=== PATIENT | female | born 1940 | race Caucasian/White ===

== ENCOUNTER → 2016-05-27 | Outpatient (CLI) | payer MEDICARE ==
--- NOTE | 2016-05-29 09:34 | MM ---
Reason for exam: screening (asymptomatic). Last mammogram was performed 1 year ago. History: Patient is postmenopausal. Physical Findings: A clinical breast exam by your physician is recommended on an annual basis and results should be correlated with mammographic findings. MG 3D Screening Mammo W/Cad Bilateral CC and MLO view(s) were taken. Prior study comparison: May 24, 2015, bilateral MG 3d screening mammo w/cad. November 09, 2014, left breast MG diagnostic mammo LT w CAD. There are scattered fibroglandular densities. No significant changes when compared with prior studies. ASSESSMENT: Benign, BI-RAD 2 RECOMMENDATION: Routine screening mammogram of both breasts in 1 year.
== END | disposition home or self-care (01) ==
LOC: RADMAMWWP 09:35
PROVIDERS: ATTEND Internal Medicine
DX: Z12.31 Encounter for screening mammogram for malignant neoplasm of breast (principal)
CPT/HCPCS: 77063; G0202

== ENCOUNTER → 2017-05-28 | Outpatient (CLI) | payer MEDICARE ==
--- NOTE | 2017-05-30 07:30 | MM ---
Reason for exam: screening (asymptomatic). Last mammogram was performed 1 year ago. History: Patient is postmenopausal. Physical Findings: A clinical breast exam by your physician is recommended on an annual basis and results should be correlated with mammographic findings. MG 3D Screening Mammo W/Cad Bilateral CC and MLO view(s) were taken. Prior study comparison: May 27, 2016, bilateral MG 3d screening mammo w/cad. May 24, 2015, bilateral MG 3d screening mammo w/cad. There are scattered fibroglandular densities. Stable benign calcifications. There is no discrete abnormality. No significant changes when compared with prior studies. ASSESSMENT: Benign, BI-RAD 2 RECOMMENDATION: Routine screening mammogram of both breasts in 1 year.
== END | disposition home or self-care (01) ==
LOC: RADMAMWWP 08:25
PROVIDERS: ATTEND Internal Medicine
DX: Z12.31 Encounter for screening mammogram for malignant neoplasm of breast (principal)
CPT/HCPCS: 77063; 77067

== ENCOUNTER → 2018-09-28 | Outpatient (CLI) | payer MEDICARE ==
--- NOTE | 2018-09-30 09:20 | MM ---
Reason for exam: screening (asymptomatic). Last mammogram was performed 1 year and 4 months ago. History: Patient is postmenopausal. Physical Findings: A clinical breast exam by your physician is recommended on an annual basis and results should be correlated with mammographic findings. MG 3D Screening Mammo W/Cad Bilateral CC and MLO view(s) were taken. Prior study comparison: May 28, 2017, bilateral MG 3d screening mammo w/cad. May 27, 2016, bilateral MG 3d screening mammo w/cad. There are scattered fibroglandular densities. Benign appearing bilateral calcifications. No significant changes when compared with prior studies. ASSESSMENT: Benign, BI-RAD 2 RECOMMENDATION: Routine screening mammogram of both breasts in 1 year.
== END | disposition home or self-care (01) ==
LOC: RADMAMWWP 10:18
PROVIDERS: ATTEND Internal Medicine
DX: Z12.31 Encounter for screening mammogram for malignant neoplasm of breast (principal)
CPT/HCPCS: 77063; 77067

== ENCOUNTER → 2021-06-29 | Outpatient (CLI) | payer MEDICARE ==
--- NOTE | 2021-07-05 15:15 | PE ---
Comparison PET/CT HISTORY: Anal carcinoma, subsequent Patient received 11.11 mCi F-18 FDG intravenously and delayed scanning was performed from skull base to the mid thighs. Localization and attenuation correction CT scan was performed. Correlation to CT scan 04/02/2021 Chest and neck: There is no suspicious uptake. No cervical or supraclavicular adenopathy, no mediasti nal, axillary, or hilar adenopathy. There is no pleural or pericardial effusion. No evident lung mass . There are coronary artery calcifications present. Centrilobular emphysema is present within the ricardo gs. ABDOMEN: The region of the anus shows associated hypermetabolic uptake, SUV is 14. Left inguinal arvind opathy is again noted and shows associated uptake, SUV is 5.9. Patient is post cholecystectomy. No evident liver mass. Left renal cystic lesions are not simple cyst ic, possible proteinaceous cysts but indeterminate. No evident liver mass. No adrenal mass or retrope ritoneal adenopathy. Uterus and adnexal structures within normal limits. Diverticular changes associa burt with the colon. Aorta shows atheromatous change. Osseous structures show no suspicious uptake. Degenerative changes are present within the lumbar spin e, there is facet arthropathy and degenerative disc change. No suspicious uptake. IMPRESSION: Findings consistent with patient's history of anal carcinoma left inguinal adenopathy. Cy stic lesions associated with the left kidney.
== END | disposition home or self-care (01) ==
LOC: RADPETMAIN 14:28
PROVIDERS: ATTEND Radiology Radiation Oncology
DX: C21.1 Malignant neoplasm of anal canal (principal)
CPT/HCPCS: 78815; A9552

== ENCOUNTER → 2021-12-07 | Outpatient (CLI) | payer MEDICARE | END | disposition home or self-care (01) | LOC: RADPETMAIN 08:31 | PROVIDERS: ATTEND Radiology Radiation Oncology | DX: C21.1 Malignant neoplasm of anal canal (principal); C77.4 Secondary and unspecified malignant neoplasm of inguinal and lower limb lymph nodes; Z79.899 Other long term (current) drug therapy | CPT/HCPCS: 78815; A9552 ==

== ENCOUNTER 2022-05-21 08:26 | Day surgery (SDC) | payer MEDICARE ==
[2022-05-16 18:05] VITALS: BMI 29.6
[~2022-05-21 08:26] MED LIST: ALPRAZolam 0.25 MG TAB PO PRN; ALPRAZolam 0.5 MG TAB PO PRN; ASPIRIN 325 MG TAB PO STA; ATORVASTATIN 80 MG TAB PO STA; HEPARIN SODIUM,PORCINE 10,000 UNIT in SODIUM CHLORIDE 0.9% 1,000 ML IRRIGATION PRN; HEPARIN SODIUM,PORCINE 2,500 UNIT in SODIUM CHLORIDE 0.9% 250 ML IRRIGATION PRN; NITROGLYCERIN SL TABS 0.4 MG TAB SUBLINGUAL PRN; SODIUM CHLORIDE 0.9% 1,000 ML in EMPTY BAG 1 BAG IV SCH
[2022-05-21 09:02] LABS: Basophils % (A) 1 %; Eosinophils # (A) 0.2 k/uL (0-0.7); Eosinophils % (A) 4 %; HCT 32.6 % (34.0-46.0); HGB 11.2 gm/dL (11.4-16.0); Lymphocytes # (A) 0.4 k/uL (1.0-4.8); Lymphocytes % (A) 7 %; MCH 34.9 pg (25.0-35.0); MCHC 34.4 g/dL (31.0-37.0); MCV 101.6 fL (80.0-100.0); Macrocytosis Slight; Mean Platelet Volume 8.5; Monocytes # (A) 0.4 k/uL (0-1.0); Monocytes % (A) 6 %; Neutrophils % (A) 81 %; Platelet Count 198 k/uL (150-450); RDW 13.9 % (11.5-15.5); WBC 6.2 k/uL (3.8-10.6)
[2022-05-21 09:03] VITALS: RESP 18; TEMP 98
[2022-05-21 09:03] LABS: Glucose,Whole Blood 104 mg/dL (70-110)
[2022-05-21 09:13] LABS: Calcium 8.8 mg/dL (8.4-10.2); Potassium 3.7 mmol/L (3.5-5.1)
[2022-05-21] MEDS ORDERED: VERAPAMIL 2.5 MG/ML 2 ML AMP ONE (09:43)
[2022-05-21] MEDS ORDERED: HEPARIN SODIUM 1,000 UN/ML (10ML VL) ONE (09:43)
[2022-05-21] MEDS ORDERED: fentaNYL (PF) 50 MCG/ML 2 ML AMP ONE (10:15)
[2022-05-21] MEDS ORDERED: MIDAZOLAM 2 MG/2 ML VIAL IVP ONE (10:15)
[2022-05-21] MEDS ORDERED: fentaNYL (PF) 50 MCG/1 ML VIAL IVP ONE ×2 (10:15)
[2022-05-21] MEDS ORDERED: LIDOCAINE 1% INJ 10MG/ML (5 ML VIAL-PF) SQ ONE (10:17)
[2022-05-21] MEDS ORDERED: VERAPAMIL SYRINGE (5 MG/10 ML) INTRAARTER ONE (10:21)
[2022-05-21] MEDS ORDERED: HEPARIN SODIUM 1,000 UN/ML (10ML VL) IV ONE (10:24)
[2022-05-21] MEDS ORDERED: IOPAMIDOL-370 125ML BTL INJ ONE (10:30)
[2022-05-21] MEDS ORDERED: RX INFO: IV CONTRAST WAS GIVEN 1 EACH MISC MISCELLANE PRN (10:55)
[2022-05-21] MEDS ORDERED: SODIUM CHLORIDE 0.9% 1,000 ML IV SCH (11:00)
--- NOTE | 2022-05-21 12:38 | CC ---
CARDIAC CATHETERIZATION REPORT INDICATIONS: Congestive heart failure with cardiomyopathy with ischemia in LAD distribution. PROCEDURE NOTE: After obtaining informed consent, left heart catheterization and coronary angiogram were performed via the right radial artery using size 3.5 right and left Marichuy catheter. Hemodynamics were obtained using the right Marichuy catheter. The patient tolerated the procedure well without any obvious immediate complications. She received moderate conscious sedation. Total sedation time was 12 minutes. Right radial artery access was obtained using a modified Seldinger technique. A 6- [place] sheath was placed. Catheters and wires were floated into the ascending aorta under fluoroscopic guidance, where they were exchanged. The patient received 5 mg of verapamil and 4000 units of heparin per protocol and a TR band was placed for hemostasis at the end. FINDINGS: 1. Hemodynamics: Left ventricular end-diastolic pressure is 14 mm. There is no significant gradient across the aortic valve. 2. Left ventriculogram: Left ventriculogram was not performed. 3. Angiographic data: a.Right coronary artery: Right coronary artery is a large dominant vessel and is free of stenosis. That revealed mild nonobstructive CAD. b.Left main coronary artery: Left main coronary artery is a normal-sized vessel and is free of stenosis. It divides into left anterior descending coronary artery and circumflex coronary artery. c.Circumflex coronary artery which is a codominant system is free of significant stenosis. d.LAD shows a vypz-jq-rkjucvck atherosclerotic plaque in its midportion. CONCLUSIONS: Swxm-[id number] nonobstructive disease involving LAD. PLAN: The patient's management is going to be in the form of risk factor modification, medical therapy, and her stress test is a false-positive stress test. MMODL / IJN: [id number] /
[2022-05-21 14:16] VITALS: BP 155/73; PULSE 72
== END 2022-05-21 14:45 | disposition home or self-care (01) ==
LOC: CATHCVL 08:26
PROVIDERS: ATTEND Internal Medicine Cardiovascular Disease
DX: I25.10 Atherosclerotic heart disease of native coronary artery without angina pectoris (principal); I11.0 Hypertensive heart disease with heart failure; I50.22 Chronic systolic (congestive) heart failure; I42.9 Cardiomyopathy, unspecified; I99.8 Other disorder of circulatory system; E78.5 Hyperlipidemia, unspecified; Z85.048 Personal history of other malignant neoplasm of rectum, rectosigmoid junction, and anus; Z92.21 Personal history of antineoplastic chemotherapy; Z92.3 Personal history of irradiation; Z82.49 Family history of ischemic heart disease and other diseases of the circulatory system; Z79.82 Long term (current) use of aspirin; Z79.1 Long term (current) use of non-steroidal anti-inflammatories (NSAID); Z79.83 Long term (current) use of bisphosphonates; Z79.899 Other long term (current) drug therapy; Z79.01 Long term (current) use of anticoagulants; Z79.02 Long term (current) use of antithrombotics/antiplatelets; Z88.2 Allergy status to sulfonamides
CPT/HCPCS: 93458; 80048; 85025; C1769; C1894; J2250; J2001; J1644; Q9967; J3010

== ENCOUNTER 2022-05-22 14:14 | Inpatient (IN) | payer MEDICARE ==
--- NOTE | 2022-05-22 15:45 | ED ---
SOB HPI - General Chief Complaint: Shortness of Breath Stated Complaint: chest pain Time Seen by Provider: 05/22/22 14:38 Source: patient, EMS Mode of arrival: EMS Limitations: no limitations - History of Present Illness Initial Comments: 81-year-old female presents to the emergency department as a transfer from [facility]. She has a history of congestive heart failure. She received a heart catheterization yesterday by Dr. Moreno. Procedure was performed on an outpatient basis. Catheterization showed mild to moderate nonobstructive disease involving the LAD. No stents were placed. Patient was discharged home. She reports that last night she became short of breath and it persisted into the morning. She does take Lasix. States that she did take her dose today. She denies any chest pain. No nausea or vomiting. She denies fevers, chills or cough. No lower extremity swelling. At [facility] they found her to have a BNP of 15,000. Chest x-ray demonstrates pulmonary vascular congestion and pleural effusions. She was given 40 mg of Lasix. She has had 1500 mL of urine output. They did speak to Dr. Moreno. Transferred here for further care. No other alleviating, precipitating or modifying factors - Related Data Home Medications Medication Instructions Recorded Confirmed Aspirin 325 mg PO DAILY 05/16/22 05/22/22 Calcium Carbonate/Vitamin D3 1 cap PO W/LUNCH 05/16/22 05/22/22 [Calcium 600 mg-D3 10 Mcg (400 Iu)] Esomeprazole Magnesium [NexIUM 20 mg PO HS 05/16/22 05/22/22 24Hr] Ferrous Sulfate [Iron (65 MG 325 mg PO BID 05/16/22 05/22/22 Elemental)] Glucosamine/Chondr Hsu A Sod [Osteo 1 tab PO DAILY 05/16/22 05/22/22 Bi-Flex Caplet] Losartan Potassium 50 mg PO DAILY 05/16/22 05/22/22 Methenamine/Sodium Salicylate [Azo 1 tab PO W/LUNCH 05/16/22 05/22/22 Urinary Tract Defense Tab] Metoprolol Tartrate [Lopressor] 12.5 mg PO BID 05/16/22 05/22/22 Potassium Gluconate [Potassium 99 mg PO DAILY 05/16/22 05/22/22 Gluconate ER] Rosuvastatin Calcium 40 mg PO HS 05/16/22 05/22/22 Previous Rx's Medication Instructions Recorded Furosemide [Lasix] 40 mg PO DAILY #0 05/24/22 Allergies Allergy/AdvReac Type Severity Reaction Status Date / Time Sulfa (Sulfonamide AdvReac Rash/Hives Verified 05/22/22 16:38 Antibiotics) Review of Systems ROS Statement: Those systems with pertinent positive or pertinent negative responses have been documented in the HPI. ROS Other: All systems not noted in ROS Statement are negative. Past Medical History Past Medical History: Heart Failure, Diabetes Mellitus, GERD/Reflux, Hyperlipidemia, Hypertension, Myocardial Infarction (CT), Osteoarthritis (OA) Additional Past Medical History / Comment(s): DIET CONTROL DM. ANAL CANCER-25 ROUNDS OF CHEMO AND RADIATION. ANEMIA Last Myocardial Infarction Date:: UNK-PER DAUGHTER History of Any Multi-Drug Resistant Organisms: None Reported Past Surgical History: Cholecystectomy Additional Past Surgical History / Comment(s): D&C. COLONOSCOPY. BILAT CATARACTS REMOVED WITH LENS IMPLANTS Past Anesthesia/Blood Transfusion Reactions: No Reported Reaction Smoking Status: Never smoker - Past Family History Mother Family Medical History: No Reported History General Exam Limitations: no limitations General appearance: alert, in no apparent distress Head exam: Present: atraumatic, normocephalic, normal inspection Eye exam: Present: normal appearance, PERRL, EOMI. Absent: scleral icterus, conjunctival injection, periorbital swelling ENT exam: Present: normal exam, mucous membranes moist Neck exam: Present: normal inspection. Absent: tenderness, meningismus, lymphadenopathy Respiratory exam: Absent: respiratory distress, wheezes, rales, rhonchi, st ridor, accessory muscle use Cardiovascular Exam: Present: regular rate, normal rhythm, normal heart sounds. Absent: systolic murmur, diastolic murmur, rubs, gallop, clicks GI/Abdominal exam: Present: soft, normal bowel sounds. Absent: distended, te nderness, guarding, rebound, rigid Extremities exam: Present: full ROM, normal capillary refill, pedal edema. Absent: tenderness, joint swelling, calf tenderness Back exam: Present: normal inspection Neurological exam: Present: alert, oriented X3, CN II-XII intact Psychiatric exam: Present: normal affect, normal mood Skin exam: Present: warm, dry, intact, normal color. Absent: rash Course Vital Signs 05/22/22 05/22/22 05/22/22 14:16 14:30 15:00 Temperature 97.9 F Pulse Rate 83 79 75 Respiratory 20 18 16 Rate Blood Pressure 156/83 156/83 154/86 O2 Sat by Pulse 98 Oximetry 05/22/22 05/22/22 05/22/22 15:30 16:00 16:17 Temperature Pulse Rate 80 83 Respiratory 16 22 18 Rate Blood Pressure 148/60 150/83 O2 Sat by Pulse 100 99 93 L Oximetry 05/22/22 16:30 Temperature Pulse Rate 84 Respiratory 16 Rate Blood Pressure 143/75 O2 Sat by Pulse 96 Oximetry Medical Decision Making - Medical Decision Making Was pt. sent in by a medical professional or institution? [facility] Did you speak to anyone other than the patient for history? daughter Did you review nursing and triage notes? yes and I agree Were old charts reviewed? yes. transfer paperwork from outside hospital Differential Diagnosis? MDM Differential Dyspnea: Coronary syndrome, arrhythmia, tamponade, asthma, COPD, pulmonary embolism, pneumonia, pneumothorax, pulmonary effusion, anaphylaxis, diabetic ketoacidosis, flailed chest, pulmonary contusion, diaphragmatic rupture, anemia, neuromuscular this is not meant to be an all-inclusive list. EKG interpreted by me (3pts min.)? yes X-rays interpreted by me (1pt min.)? no CT interpreted by me (1pt min.)? no U/S interpreted by me (1pt. min.)? no What testing was considered but not performed? (CT, X-rays, U/S, labs)? Why? none What meds were considered but not given? Why? none Did you discuss the management of the patient with other professionals? admitting physician Did you reconcile home meds? yes Was smoking cessation discussed for >3mins.? no Was critical care preformed (if so, how long)? no Were there social determinants of health that impacted care today? How? (Homelessness, low income, unemployed, alcoholism, drug addiction, transportation, low edu. Level, literacy, decrease access to med. care, snf, rehab)? none Was there de-escalation of care discussed even if they declined? (Discuss DNR or withdrawal of care, Hospice)? no What co-morbidities impacted this encounter? (DM, HTN, Smoking, COPD, CAD, Can cer, CVA, Hep., AIDS, mental health diagnosis, sleep apnea, morbid obesity)? htn, hld, chf, DM Was patient admitted / discharged? Upon arrival the patient was placed into room 22. Thorough history and physical exam was performed. I did review the patient's outside records. Chest x-ray does show volume overload. Recommend recommended admission for cardiology to see her. Patient was agreeable to this. I spoke with Dr. castañeda for adm ission of the patient was taken to the floor. I did order scheduled Lasix and cardiology consultation Undiagnosed new problem with uncertain prognosis? yes Drug Therapy requiring intensive monitoring for toxicity (Heparin, Nitro, Insulin, Cardizem)? no Were any procedures done? no Diagnosis/symptom? acute chf exacerbation Acute, or Chronic, or Acute on Chronic? acute on chronic Uncomplicated (without systemic symptoms) or Complicated (systemic symptoms)? complicated Side effects of treatment? livia Exacerbation, Progression, or Severe Exacerbation] exacerbation Poses a threat to life or bodily function? yes - Lab Data Result diagrams: 05/23/22 09:04 05/24/22 06:55 Lab Results 05/22/22 05/22/22 05/22/22 Range/Units 17:18 18:59 19:51 WBC (3.8-10.6) k/uL RBC (3.80-5.40) m/uL Hgb (11.4-16.0) gm/dL Hct (34.0-46.0) % MCV (80.0-100.0) fL MCH (25.0-35.0) pg MCHC (31.0-37.0) g/dL RDW (11.5-15.5) % Plt Count (150-450) k/uL MPV Neutrophils % % Lymphocytes % % Monocytes % % Eosinophils % % Basophils % % Neutrophils # (1.3-7.7) k/uL Lymphocytes # (1.0-4.8) k/uL Monocytes # (0-1.0) k/uL Eosinophils # (0-0.7) k/uL Basophils # (0-0.2) k/uL Macrocytosis D-Dimer (<0.60) mg/L FEU Sodium (137-145) mmol/L Potassium (3.5-5.1) mmol/L Chloride (98-107) mmol/L Carbon Dioxide (22-30) mmol/L Anion Gap mmol/L BUN (7-17) mg/dL Creatinine (0.52-1.04) mg/dL Est GFR (CKD-EPI)AfAm (>60 ml/min/1.73 sqM) Est GFR (CKD-EPI)NonAf (>60 ml/min/1.73 sqM) Glucose (74-99) mg/dL POC Glucose (mg/dL) 92 177 H (70-110) mg/dL POC Glu Alliance Director ID Alicia Galeano Kylee Calcium (8.4-10.2) mg/dL Troponin I 0.105 H* (0.000-0.034) ng/mL NT-Pro-B Natriuret Pep pg/mL 05/22/22 05/23/22 05/23/22 Range/Units 22:01 06:04 09:04 WBC (3.8-10.6) k/uL RBC (3.80-5.40) m/uL Hgb (11.4-16.0) gm/dL Hct (34.0-46.0) % MCV (80.0-100.0) fL MCH (25.0-35.0) pg MCHC (31.0-37.0) g/dL RDW (11.5-15.5) % Plt Count (150-450) k/uL MPV Neutrophils % % Lymphocytes % % Monocytes % % Eosinophils % % Basophils % % Neutrophils # (1.3-7.7) k/uL Lymphocytes # (1.0-4.8) k/uL Monocytes # (0-1.0) k/uL Eosinophils # (0-0.7) k/uL Basophils # (0-0.2) k/uL Macrocytosis D-Dimer (<0.60) mg/L FEU Sodium 141 (137-145) mmol/L Potassium 3.6 (3.5-5.1) mmol/L Chloride 104 (98-107) mmol/L Carbon Dioxide 32 H (22-30) mmol/L Anion Gap 5 mmol/L BUN 26 H (7-17) mg/dL Creatinine 1.23 H (0.52-1.04) mg/dL Est GFR (CKD-EPI)AfAm 48 (>60 ml/min/1.73 sqM) Est GFR (CKD-EPI)NonAf 42 (>60 ml/min/1.73 sqM) Glucose 159 H (74-99) mg/dL POC Glucose (mg/dL) 105 (70-110) mg/dL POC Glu Alliance Director Yadira Diehl Calcium 8.5 (8.4-10.2) mg/dL Troponin I 0.117 H* (0.000-0.034) ng/mL NT-Pro-B Natriuret Pep pg/mL 05/23/22 05/23/22 05/23/22 Range/Units 09:04 09:04 09:04 WBC 4.7 (3.8-10.6) k/uL RBC 2.91 L (3.80-5.40) m/uL Hgb 9.9 L (11.4-16.0) gm/dL Hct 29.6 L (34.0-46.0) % MCV 101.6 H (80.0-100.0) fL MCH 33.9 (25.0-35.0) pg MCHC 33.4 (31.0-37.0) g/dL RDW 14.1 (11.5-15.5) % Plt Count 180 (150-450) k/uL MPV 7.6 Neutrophils % 79 % Lymphocytes % 7 % Monocytes % 7 % Eosinophils % 5 % Basophils % 0 % Neutrophils # 3.7 (1.3-7.7) k/uL Lymphocytes # 0.3 L (1.0-4.8) k/uL Monocytes # 0.3 (0-1.0) k/uL Eosinophils # 0.2 (0-0.7) k/uL Basophils # 0.0 (0-0.2) k/uL Macrocytosis Slight D-Dimer 1.56 H (<0.60) mg/L FEU Sodium (137-145) mmol/L Potassium (3.5-5.1) mmol/L Chloride (98-107) mmol/L Carbon Dioxide (22-30) mmol/L Anion Gap mmol/L BUN (7-17) mg/dL Creatinine (0.52-1.04) mg/dL Est GFR (CKD-EPI)AfAm (>60 ml/min/1.73 sqM) Est GFR (CKD-EPI)NonAf (>60 ml/min/1.73 sqM) Glucose (74-99) mg/dL POC Glucose (mg/dL) (70-110) mg/dL POC Glu Alliance Director ID Calcium (8.4-10.2) mg/dL Troponin I (0.000-0.034) ng/mL NT-Pro-B Natriuret Pep 18861 pg/mL 05/23/22 Range/Units 11:51 WBC (3.8-10.6) k/uL RBC (3.80-5.40) m/uL Hgb (11.4-16.0) gm/dL Hct (34.0-46.0) % MCV (80.0-100.0) fL MCH (25.0-35.0) pg MCHC (31.0-37.0) g/dL RDW (11.5-15.5) % Plt Count (150-450) k/uL MPV Neutrophils % % Lymphocytes % % Monocytes % % Eosinophils % % Basophils % % Neutrophils # (1.3-7.7) k/uL Lymphocytes # (1.0-4.8) k/uL Monocytes # (0-1.0) k/uL Eosinophils # (0-0.7) k/uL Basophils # (0-0.2) k/uL Macrocytosis D-Dimer (<0.60) mg/L FEU Sodium (137-145) mmol/L Potassium (3.5-5.1) mmol/L Chloride (98-107) mmol/L Carbon Dioxide (22-30) mmol/L Anion Gap mmol/L BUN (7-17) mg/dL Creatinine (0.52-1.04) mg/dL Est GFR (CKD-EPI)AfAm (>60 ml/min/1.73 sqM) Est GFR (CKD-EPI)NonAf (>60 ml/min/1.73 sqM) Glucose (74-99) mg/dL POC Glucose (mg/dL) 120 H (70-110) mg/dL POC Glu Alliance Director ID Alicia Galeano Calcium (8.4-10.2) mg/dL Troponin I (0.000-0.034) ng/mL NT-Pro-B Natriuret Pep pg/mL Disposition Clinical Impression: Congestive heart failure, Acute respiratory insufficiency, Pleural effusion Disposition: ADMITTED IP TO THIS HOSP Is patient prescribed a controlled substance at d/c from ED?: No Time of Disposition: 15:46 Decision to Admit Reason: Admit from EC Decision Date: 05/22/22 Decision Time: 15:46
[2022-05-22] MEDS ORDERED: NALOXONE 0.4 MG/ML 1 ML VIAL IV PRN (15:51)
[2022-05-22] MEDS: FUROSEMIDE 10 MG/ML 4 ML VIAL IV SCH ×2 (16:42→23:01)
[2022-05-22 17:21] LABS: Glucose,Whole Blood 92 mg/dL (70-110)
[2022-05-22] MEDS ORDERED: ACETAMINOPHEN TAB 325 MG TAB PO PRN (17:54)
[2022-05-22] MEDS ORDERED: MELATONIN 3 MG TABLET PO PRN (17:54)
[2022-05-22] MEDS ORDERED: ONDANSETRON 4 MG/2 ML VIAL IVP PRN (17:54)
[2022-05-22] MEDS ORDERED: CALCIUM CARBONATE 500 MG CHEWABLE PO PRN (17:54)
[2022-05-22] MEDS ORDERED: ALPRAZolam 0.25 MG TAB PO PRN (17:54)
[2022-05-22] MEDS ORDERED: LACTULOSE 20 GM/30 ML CUP PO PRN (17:54)
--- NOTE | 2022-05-22 18:40 | XR ---
EXAMINATION TYPE: XR chest 2V DATE OF EXAM: 05/22/2022 6:17 PM COMPARISON: Chest radiographs from outside films on same day 12/07/2021 TECHNIQUE: XR chest 2V Frontal and lateral views of the chest. CLINICAL INDICATION:Female, 81 years old with history of chf; FINDINGS: Lungs/Pleura: No evidence of focal consolidation or pneumothorax. Blunting of the costophrenic angles is present. Pulmonary vascularity: Unremarkable. Heart/mediastinum: Cardiomediastinal silhouette is partially obscured due to overlying and adjacent o pacities. Musculoskeletal: No acute osseous pathology. IMPRESSION: Moderate right and small left pleural effusion associated atelectasis.
[2022-05-22 19:52] LABS: Glucose,Whole Blood 177 mg/dL (70-110)
[2022-05-22] MEDS: FERROUS SULFATE 325 MG TAB PO SCH (19:56)
[2022-05-22] MEDS: PANTOPRAZOLE 40 MG TABLET PO SCH (19:56)
[2022-05-22] MEDS: ATORVASTATIN 80 MG TAB PO SCH (19:56)
[2022-05-22] MEDS: METOPROLOL TARTRATE 25 MG TAB PO SCH (19:56)
[2022-05-23 06:05] LABS: Glucose,Whole Blood 105 mg/dL (70-110)
[2022-05-23 09:20] VITALS: RESP 18
[2022-05-23] MEDS: NITROGLYCERIN OINT 1 INCH/GM PACKET TOPICAL SCH ×3 (09:20→23:54)
[2022-05-23] MEDS: FERROUS SULFATE 325 MG TAB PO SCH ×2 (09:20→19:50)
[2022-05-23] MEDS: METOPROLOL TARTRATE 25 MG TAB PO SCH ×2 (09:20→19:49)
[2022-05-23] MEDS: ASPIRIN 325 MG TAB PO SCH (09:20)
[2022-05-23] MEDS: LOSARTAN 50 MG TAB PO SCH (09:20)
[2022-05-23] MEDS: FUROSEMIDE 10 MG/ML 4 ML VIAL IV SCH ×3 (09:20→23:54)
[2022-05-23 09:24] LABS: Basophils % (A) 0 %; Eosinophils # (A) 0.2 k/uL (0-0.7); Eosinophils % (A) 5 %; HCT 29.6 % (34.0-46.0); HGB 9.9 gm/dL (11.4-16.0); Lymphocytes # (A) 0.3 k/uL (1.0-4.8); Lymphocytes % (A) 7 %; MCH 33.9 pg (25.0-35.0); MCHC 33.4 g/dL (31.0-37.0); MCV 101.6 fL (80.0-100.0); Macrocytosis Slight; Mean Platelet Volume 7.6; Monocytes # (A) 0.3 k/uL (0-1.0); Monocytes % (A) 7 %; Neutrophils # (A) 3.7 k/uL (1.3-7.7); Neutrophils % (A) 79 %; Platelet Count 180 k/uL (150-450); RBC 2.91 m/uL (3.80-5.40); RDW 14.1 % (11.5-15.5); WBC 4.7 k/uL (3.8-10.6)
--- NOTE | 2022-05-23 09:25 | CONS ---
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 Had a recent stress test that showed cardiomyopathy with moderate LV systolic dysfunction with evidence of ischemia in LAD distribution. Due to that, she underwent a cardiac catheterization that I performed on 05/21/2022. She had a fairly uneventful cath and was found to have just [id number] nonobstructive disease involving LAD. We felt that she had a false-positive stress test. She received the usual post catheterization hydration and went home. She walks with a walker and was doing fairly well after going home. Her daughter took her home and once she settled down, spent some time with her and went home. She had something to eat and did not have much to watch on television and then she lied down following which she developed sudden-onset shortness of breath. She presented to the emergency room at [place], from there she got transferred to us. Her troponins are mildly elevated at 0.1 and 0.2. Her BNP is elevated at 1500, and a chest x-ray showed pulmonary congestion. The patient's clinical presentation is consistent with acute exacerbation of chronic systolic heart failure and this could very well be the result of IV fluids that she received post catheterization than the underlying cardiomyopathy with LV dysfunction. At the time of my evaluation, she appears comfortable at rest. Her O2 saturation is 98% on 2 L and she is hemodynamically stable and is receiving IV Lasix 40 mg every 8 hours. She is on Lopressor and Cozaar along with aspirin and Lipitor. I will add nitroglycerin paste and obtain a 2D echo. PAST MEDICAL HISTORY: Significant for carcinoma of the anus, mild nonobstructive CAD, hypertension, and dyslipidemia. MEDICATIONS: Medications at home included, 1. Crestor 40 mg daily. 2. K-Dur. 3. Naprosyn. 4. Lopressor. 5. Losartan 50 mg daily. 6. Lasix 20 mg daily. 7. Nexium. 8. Aspirin. ALLERGIES: To sulfa. FAMILY HISTORY: Negative for premature coronary artery disease. SOCIAL HISTORY: Negative for smoking, EtOH abuse, or drug abuse. REVIEW OF SYSTEMS: A review of systems has been performed, pertinence are as documented. PHYSICAL EXAMINATION: GENERAL: She appears comfortable at rest. VITAL SIGNS: Stable. NECK: There is no jugular venous distention. Carotid upstroke is normal. There is no bruit. CHEST: Reveals good air entry bilaterally. HEART: Reveals first and second heart sounds. No gallop, no murmur. ABDOMEN: Soft, nontender. EXTREMITIES: Did not reveal any edema. Peripheral pulses are felt. IMAGING: A chest x-ray showed a pleural effusion and pulmonary congestion. EKG showed sinus rhythm with nonspecific ST-T wave changes and PVCs. Trops were mildly elevated probably related to the congestive heart failure. ASSESSMENT: Acute exacerbation of chronic systolic heart failure, mild nonobstructive coronary artery disease, carcinoma of the anus. PLAN: I will treat the patient with intravenous diuretics, CLEMENTINE inhibitors, beta blockers. Add nitro paste and obtain a 2D echo. Hopefully, we can discharge her home over the next 24-48 hours. The elevated troponin is not due to myocardial infarction and I will obtain a D-dimer to complete her workup. MMODL / IJN: [id number] /
[2022-05-23 09:43] LABS: Calcium 8.5 mg/dL (8.4-10.2); Potassium 3.6 mmol/L (3.5-5.1)
[2022-05-23 12:04] LABS: Glucose,Whole Blood 120 mg/dL (70-110)
[2022-05-23] MEDS: CALCIUM CARB-VIT D 500 MG-5 MCG TAB PO SCH (12:39)
--- NOTE | 2022-05-23 16:10 | P.HPIM ---
History of Present Illness H&P Date: 05/22/22 Chief Complaint: Short of breath This is a pleasant 81-year-old patient who follows with Dr. Michael. Chronic stable medical conditions include diabetes, GERD, hypertension, hyperlipidemia, osteoarthritis, anal cancer and as a seat 25 rounds of chemotherapy and radiation treatment. At her baseline does use a walker. Lives alone. This patient follows with tower operator Dr. Maya Keller. Has known cardiomyopathy. Did have a possibly positive stress test. On 05/21/2022 patient had a cardiac catheterization showed normal coronaries. Patient went home. Became short of breath. Presented to [facility]. Found with CHF. Patient's transfer down here. At her troponin leak. No chest pain. Tired. Short of breath. Did feel a bit better with IV Lasix. Review of systems: GEN.: Tired EYES: None HEENT: None NECK: None RESPIRATORY: As above CARDIOVASCULAR: No chest pain GASTROINTESTINAL: None GENITOURINARY: None MUSCULOSKELETAL: Joint pains LYMPHATICS: None HEMATOLOGICAL: None PSYCHIATRY: None NEUROLOGICAL: Does use a walker Past medical history to include: CHF, diabetes, GERD, hypertension, hyperlipidemia, osteoarthritis, diet- controlled diabetes, anal cancer treated with 25 rounds of chemo and radiation treatment, anemia Social history: Lives alone. No smoking or alcohol. Physical examination: VITAL SIGNS: 98, 81, 20, 1 27 x 65, 97% on 2 L GENERAL: BMI 25.8, declining a bit tired, short of breath. EYES: Pupils equal. Conjunctiva normal. HEENT: External appearance of nose and ears normal, oral cavity grossly normal. NECK: JVD raised; masses not palpable. HEART: First and second heart sounds are normal; no edema. LUNGS:[ Respiratory rate increased; lungs basal crackles. ABDOMEN: Soft, nontender, liver spleen not palpable, no masses palpable. PSYCH: Alert and oriented x3; mood and affect normal. MUSCULOSKELETAL:No Clubbing/cyanosis;muscles-grossly intact. OA NEUROLOGICAL: Cranial nerves grossly intact; no facial asymmetry, power and sensation grossly intact. LYMPHATICS: No lymph nodes palpable in the axilla and neck INVESTIGATIONS, reviewed in the clinical context: EKG tracing personally reviewed by me-normal sinus rhythm with some ST segment and T-wave changes. Chest x-ray film personally reviewed by me-cardiomegaly, right pleural effusion, venous prominence encephalization Assessment and plan: -Acute on chronic congestive heart failure exacerbation, EF not known. IV Lasix. Low-salt diet. -Normal coronary arteries by cardiac catheterization with Dr. Maya Moreno on 05/21/2022 -GERD PPI -Essential hypertension Losartan 50 mg a day Lopressor 12.5 mg twice a day -Primary osteoarthritis Naproxen -Hyperlipidemia Crestor -Chronic kidney dysfunction uses a walker at baseline -Full code IV Lasix. Repeat labs. Cartilage E consulted. Telemetry. Discussed with patient. Past Medical History Past Medical History: Heart Failure, Diabetes Mellitus, GERD/Reflux, Hype rlipidemia, Hypertension, Myocardial Infarction (AR), Osteoarthritis (OA) Additional Past Medical History / Comment(s): DIET CONTROL DM. ANAL CANCER-25 ROUNDS OF CHEMO AND RADIATION. ANEMIA Last Myocardial Infarction Date:: UNK-PER DAUGHTER History of Any Multi-Drug Resistant Organisms: None Reported Past Surgical History: Cholecystectomy Additional Past Surgical History / Comment(s): D&C. COLONOSCOPY. BILAT CATARACTS REMOVED WITH LENS IMPLANTS Past Anesthesia/Blood Transfusion Reactions: No Reported Reaction Past Psychological History: No Psychological Hx Reported Smoking Status: Never smoker Past Alcohol Use History: None Reported Past Drug Use History: None Reported - Past Family History Mother Family Medical History: No Reported History Medications and Allergies Home Medications Medication Instructions Recorded Confirmed Type Aspirin 325 mg PO DAILY 05/16/22 05/22/22 History Calcium Carbonate/Vitamin D3 1 cap PO W/LUNCH 05/16/22 05/22/22 History [Calcium 600 mg-D3 10 Mcg (400 Iu)] Esomeprazole Magnesium [NexIUM 20 mg PO HS 05/16/22 05/22/22 History 24Hr] Ferrous Sulfate [Iron (65 MG 325 mg PO BID 05/16/22 05/22/22 History Elemental)] Fexofenadine HCl 180 mg PO W/LUNCH 05/16/22 05/22/22 History Furosemide [Lasix] 20 mg PO DAILY 05/16/22 05/22/22 History Glucosamine/Chondr Hsu A Sod [Osteo 1 tab PO DAILY 05/16/22 05/22/22 History Bi-Flex Caplet] Losartan Potassium 50 mg PO DAILY 05/16/22 05/22/22 History Methenamine/Sodium Salicylate [Azo 1 tab PO W/LUNCH 05/16/22 05/22/22 History Urinary Tract Defense Tab] Metoprolol Tartrate [Lopressor] 12.5 mg PO BID 05/16/22 05/22/22 History Naproxen [Naprosyn] 500 mg PO BID 05/16/22 05/22/22 History Potassium Gluconate [Potassium 99 mg PO DAILY 05/16/22 05/22/22 History Gluconate ER] Rosuvastatin Calcium 40 mg PO HS 05/16/22 05/22/22 History Allergies Allergy/AdvReac Type Severity Reaction Status Date / Time Sulfa (Sulfonamide AdvReac Rash/Hives Verified 05/22/22 16:38 Antibiotics) Physical Exam Vitals: Vital Signs Temp Pulse Resp BP Pulse Ox 05/22/22 16:30 84 16 143/75 96 05/22/22 16:17 18 93 L 05/22/22 16:00 83 22 150/83 99 05/22/22 15:30 80 16 148/60 100 05/22/22 15:00 75 16 154/86 05/22/22 14:30 79 18 156/83 05/22/22 14:16 97.9 F 83 20 156/83 98 Intake and Output 05/22/22 05/22/22 05/22/22 06:59 14:59 22:59 Intake Total 240 Balance 240 Intake: Oral 240 Other: Weight 77.564 kg 77.564 kg Results CBC & Chem 7: 05/23/22 09:04 05/23/22 09:04
--- NOTE | 2022-05-23 16:14 | P.PN ---
Progress Note - Text Progress Note Date: 05/23/22 Chief Complaint: Short of breath This is a pleasant 81-year-old patient who follows with Dr. Michael. Chronic stable medical conditions include diabetes, GERD, hypertension, hyperlipidemia, osteoarthritis, anal cancer and as a seat 25 rounds of chemotherapy and radiation treatment. At her baseline does use a walker. Lives alone. This patient follows with construction estimator Dr. Maya Keller. Has known cardiomyopathy. Did have a possibly positive stress test. On 05/21/2022 patient had a cardiac catheterization showed normal coronaries. Patient went home. Became short of breath. Presented to [facility]. Found with CHF. Patient's transfer down here. At her troponin leak. No chest pain. Tired. Short of breath. Did feel a bit better with IV Lasix. 05/23/2022: Pain on IV Lasix 40 mg every 8. Good urine output. Breathing better. Did tolerate her breakfast. Left the patient sit up in a chair. Active Medications Acetaminophen (Acetaminophen Tab 325 Mg Tab) 650 mg PO Q6HR PRN PRN Reason: Mild Pain or Fever > 100.5 Alprazolam (Alprazolam 0.25 Mg Tab) 0.25 mg PO Q6HR PRN PRN Reason: Anxiety Aspirin (Aspirin 325 Mg Tab) 325 mg PO DAILY [facility] Last Admin: 05/23/22 09:20 Dose: 325 mg Atorvastatin Calcium (Atorvastatin 80 Mg Tab) 80 mg PO HS [facility] Last Admin: 05/22/22 19:56 Dose: 80 mg Calcium Carbonate (Calcium Carb-Vit D 500 Mg-5 Mcg Tab) 1 each PO W/LUNCH [facility] Last Admin: 05/23/22 12:39 Dose: 1 each Calcium Carbonate/Glycine (Calcium Carbonate 500 Mg Chewable) 1,000 mg PO Q4HR PRN PRN Reason: Dyspepsia Ferrous Sulfate (Ferrous Sulfate 325 Mg Tab) 325 mg PO BID [facility] Last Admin: 05/23/22 09:20 Dose: 325 mg Furosemide (Furosemide 10 Mg/Ml 4 Ml Vial) 40 mg IV Q8HR [facility] Last Admin: 05/23/22 09:20 Dose: 40 mg Lactulose (Lactulose 20 Gm/30 Ml Cup) 20 gm PO DAILY PRN PRN Reason: Constipation Losartan Potassium (Losartan 50 Mg Tab) 50 mg PO DAILY [facility] Last Admin: 05/23/22 09:20 Dose: 50 mg Melatonin (Melatonin 3 Mg Tablet) 3 mg PO HS PRN PRN Reason: Insomnia Metoprolol Tartrate (Metoprolol Tartrate 25 Mg Tab) 12.5 mg PO BID [facility] Last Admin: 05/23/22 09:20 Dose: 12.5 mg Naloxone HCl (Naloxone 0.4 Mg/Ml 1 Ml Vial) 0.2 mg IV Q2M PRN PRN Reason: Opioid Reversal Nitroglycerin (Nitroglycerin Oint 1 Inch/Gm Packet) 1 inch TOPICAL Q8HR [facility] Last Admin: 05/23/22 09:20 Dose: 1 inch Ondansetron HCl (Ondansetron 4 Mg/2 Ml Vial) 4 mg IVP Q8HR PRN PRN Reason: Nausea And Vomiting Pantoprazole Sodium (Pantoprazole 40 Mg Tablet) 40 mg PO HS [facility] Last Admin: 05/22/22 19:56 Dose: 40 mg Past medical history to include: CHF, diabetes, GERD, hypertension, hyperlipidemia, osteoarthritis, diet- controlled diabetes, anal cancer treated with 25 rounds of chemo and radiation treatment, anemia Social history: Lives alone. No smoking or alcohol. Physical examination: VITAL SIGNS: 97.4, 79, 18, 1 29 x 74, 98% on 2 L GENERAL: Declining in bed, breathing better EYES: Pupils equal. Conjunctiva normal. HEENT: External appearance of nose and ears normal, oral cavity grossly normal. NECK: JVD raised; masses not palpable. HEART: First and second heart sounds are normal; no edema. LUNGS:[ Respiratory rate increased; decreased breath sounds. ABDOMEN: Soft, nontender, liver spleen not palpable, no masses palpable. PSYCH: Alert and oriented x3; mood and affect normal. MUSCULOSKELETAL:No Clubbing/cyanosis;muscles-grossly intact. OA INVESTIGATIONS, reviewed in the clinical context: 05/23/2022: White count 4.7 hemoglobin 9.9 crit is 180 progression 3.6 BUN 2621.23 proBNP 12,000 Troponin I 0.117 EKG tracing personally reviewed by me-normal sinus rhythm with some ST segment and T-wave changes. Chest x-ray film personally reviewed by me-cardiomegaly, right pleural effusion, venous prominence encephalization Assessment and plan: -Acute on chronic congestive heart failure exacerbation, EF not known.: Slow to respond IV Lasix 40 mg every 8. Low-salt diet. -Normal coronary arteries by cardiac catheterization with Dr. Maya Moreno on 05/21/2022 -GERD PPI -Essential hypertension Losartan 50 mg a day Lopressor 12.5 mg twice a day -Primary osteoarthritis Naproxen -Hyperlipidemia Crestor -Chronic gait dysfunction uses a walker at baseline -Full code IV Lasix. Repeat labs. Follow with cardiology.. Up in a chair. Discussed with patient.
[2022-05-23 17:14] LABS: Glucose,Whole Blood 144 mg/dL (70-110)
[2022-05-23] MEDS: ATORVASTATIN 80 MG TAB PO SCH (19:49)
[2022-05-23] MEDS: PANTOPRAZOLE 40 MG TABLET PO SCH (19:49)
[2022-05-23 21:11] VITALS: TEMP 98.2
[2022-05-24 06:22] LABS: Glucose,Whole Blood 115 mg/dL (70-110)
[2022-05-24 07:38] LABS: Calcium 8.8 mg/dL (8.4-10.2); Potassium 3.4 mmol/L (3.5-5.1)
[2022-05-24] MEDS ORDERED: Potassium Replacement Protocol 1 EACH MISC MISCELLANE PRN (07:44)
[2022-05-24] MEDS ORDERED: POTASSIUM CHLORIDE ER 20 MEQ TAB.ER PO ONE (07:44)
[2022-05-24] MEDS: METOPROLOL TARTRATE 25 MG TAB PO SCH (07:56)
[2022-05-24] MEDS: LOSARTAN 50 MG TAB PO SCH (07:56)
[2022-05-24] MEDS: FUROSEMIDE 10 MG/ML 4 ML VIAL IV SCH (07:56)
[2022-05-24] MEDS: ASPIRIN 325 MG TAB PO SCH (07:56)
[2022-05-24] MEDS: FERROUS SULFATE 325 MG TAB PO SCH (07:56)
[2022-05-24] MEDS: NITROGLYCERIN OINT 1 INCH/GM PACKET TOPICAL SCH (07:57)
[2022-05-24 08:05] VITALS: BP 126/63; PULSE 74
--- NOTE | 2022-05-24 10:39 | CA ---
Transthoracic Echo Report Name: Maribell James Age: 81 Gender: F : 1940 Exam Date: 05/23/2022 10:53 Exam Location: [place] [facility] Ht (in): 62 Wt (lb): 141 Ordering Physician: Randee Moraes DO Attending/Referring Phys: [id number], Dimitry Alternative Dispute Resolution Mediator Maya Barrett, AKIN Procedure CPT: Indications: chf Cardiac Hx: Technical Quality: Contrast 1: Total Dose (mL): Contrast 2: Total Dose (mL): MEASUREMENTS (Male / Female) Normal Values 2D ECHO LV Diastolic Diameter PLAX 5.5 cm 4.2 - 5.9 / 3.9 - 5.3 cm LV Systolic Diameter PLAX 4.5 cm IVS Diastolic Thickness 0.8 cm 0.6 - 1.0 / 0.6 - 0.9 cm LVPW Diastolic Thickness 1.6 cm 0.6 - 1.0 / 0.6 - 0.9 cm LV Relative Wall Thickness 0.4 RV Internal Dim ED PLAX 3.0 cm LA Systolic Diameter LX 4.3 cm 3.0 - 4.0 / 2.7 - 3.8 cm LV Diastolic Volume MOD 4C 110.7 cm??? LV Systolic Volume MOD 4C 62.9 cm??? LV Ejection Fraction MOD 4C 43.2 % LV Diastolic Length 4C 8.1 cm LV Systolic Length 4C 7.3 cm LA Volume 81.0 cm??? 18 - 58 / 22 - 52 cm??? M-MODE Aortic Root Diameter MM 2.6 cm LA Systolic Diameter MM 4.5 cm LA Ao Ratio MM 1.7 MV E Point Septal Separation 1.1 cm AV Cusp Separation MM 1.6 cm DOPPLER MV Area PHT 4.7 cm??? Mitral E Point Velocity 83.7 cm/s Mitral A Point Velocity 76.6 cm/s Mitral E to A Ratio 1.1 MV Deceleration Time 162.3 ms TR Peak Velocity 272.5 cm/s TR Peak Gradient 29.7 mmHg Right Ventricular Systolic Press 33.3 mmHg FINDINGS Left Ventricle Left ventricular ejection fraction is estimated at 40-45 %. Inferior Hypokinesis.Left ventricular cavity size normal. Right Ventricle Normal right ventricular size and function. Right ventricular systolic pressure within normal limits. Right Atrium Normal right atrial size. Left Atrium Moderately increased left atrial diameter. Severely increased left atrial volume. Mildly increased left atrial area. Mitral Valve Mitral valve thickened. [id number] mitral regurgitation. Aortic Valve Trileaflet aortic valve. Tricuspid Valve Structurally normal tricuspid valve. Mild tricuspid regurgitation. Pulmonic Valve Structurally normal pulmonic valve. Pericardium Normal pericardium. Aorta Normal size aortic root and proximal ascending aorta. CONCLUSIONS Left ventricle is of normal size with moderate inferior wall hypokinesia and estimated ejection fraction of 40-45%. There is moderate to severe mitral regurgitation mild tricuspid regurgitation. No pericardial effusion Previewed by: Dr. Lu Jurado MD (Electronically Signed) Final Date: 24 May 2022 10:38
--- NOTE | 2022-05-24 10:44 | P.PN ---
Subjective Progress Note Date: 05/24/22 HISTORY OF PRESENT ILLNESS: This is a 81-year-old female who is a patient of Dr. Keller. The patient recently underwent cardiac catheterization on 05/21/2022. She was found to have mi [id number] nonobstructive disease involving the LAD. The patient presented back to the hospital with shortness of breath area to his being treated for congestive heart failure. Patient examined this morning at the bedside. She denies chest pain or pressure. She states that her shortness of breath has improved. She remains on IV Lasix 40 mg every 8 hours. Vital signs are stable. Creatinine 1.49, up from 1.23 yesterday. PHYSICAL EXAM: VITAL SIGNS: Reviewed. GENERAL: Well-developed in no acute distress. NECK: Supple. No JVD or thyromegaly LUNGS: Respirations even and unlabored. Lungs diminished to auscultation bilaterally. HEART: Regular rate and rhythm. S1 and S2 heard. EXTREMITIES: Normal range of motion. No clubbing or cyanosis. Peripheral pulses intact. No lower extremity edema ASSESSMENT: Acute exacerbation of chronic congestive heart failure with reduced ejection fraction Mild nonobstructive coronary artery disease Hypertension Hyperlipidemia PLAN: 2-D echo ordered. Await results Decrease IV Lasix to 40 mg IV once daily Continue additional cardiac medications Further recommendations pending patient's course Nurse practitioner note has been reviewed by physician. Signing provider agrees with the documented findings, assessment, and plan of care. Objective - Vital Signs Vital signs: Vital Signs Temp 98.2 F 05/24/22 08:00 Pulse 74 05/24/22 08:00 Resp 18 05/24/22 08:00 BP 126/63 05/24/22 08:00 Pulse Ox 97 05/24/22 08:00 FiO2 Intake & Output 05/23/22 05/24/22 05/24/22 18:59 06:59 18:59 Intake Total 480 180 Output Total 1450 700 800 Balance -970 700 -620 Weight 61 kg Intake: Oral 480 180 Output: Urine 1450 700 800 Other: Voiding Method External Catheter External Catheter External Catheter - Labs CBC & Chem 7: 05/23/22 09:04 05/24/22 06:55 Labs: Abnormal Lab Results - Last 24 Hours (Table) 05/23/22 05/23/22 05/24/22 Range/Units 11:51 16:43 06:21 Potassium (3.5-5.1) mmol/L Carbon Dioxide (22-30) mmol/L BUN (7-17) mg/dL Creatinine (0.52-1.04) mg/dL Glucose (74-99) mg/dL POC Glucose (mg/dL) 120 H 144 H 115 H (70-110) mg/dL 05/24/22 Range/Units 06:55 Potassium 3.4 L (3.5-5.1) mmol/L Carbon Dioxide 35 H (22-30) mmol/L BUN 34 H (7-17) mg/dL Creatinine 1.49 H (0.52-1.04) mg/dL Glucose 110 H (74-99) mg/dL POC Glucose (mg/dL) (70-110) mg/dL
[2022-05-24 11:39] LABS: Glucose,Whole Blood 106 mg/dL (70-110)
[2022-05-24] MEDS: CALCIUM CARB-VIT D 500 MG-5 MCG TAB PO SCH (12:04)
--- NOTE | 2022-05-24 14:30 | P.DS ---
Providers Date of admission: 05/23/22 14:22 Expected date of discharge: 05/24/22 Attending physician: Alejandro Whitaker Consults: 05/22/22 15:51 Consult Physician Urgent Consulting Provider: [facility] Consult Reason/Comments: acute chf exacerbation, recent cath Do you want consulting provider notified?: Yes Primary care physician: [facility] Course: Chief Complaint: Short of breath This is a pleasant 81-year-old patient who follows with Dr. Michael. Chronic stable medical conditions include diabetes, GERD, hypertension, hyperlipidemia, osteoarthritis, anal cancer and as a seat 25 rounds of chemotherapy and radiation treatment. At her baseline does use a walker. Lives alone. This patient follows with lpc Dr. Maya Keller. Has known cardiomyopathy. Did have a possibly positive stress test. On 05/21/2022 patient had a cardiac catheterization showed normal coronaries. Patient went home. Became short of breath. Presented to [facility]. Found with CHF. Patient's transfer down here. At her troponin leak. No chest pain. Tired. Short of breath. Did feel a bit better with IV Lasix. 05/23/2022: Pain on IV Lasix 40 mg every 8. Good urine output. Breathing better. Did tolerate her breakfast. Left the patient sit up in a chair. 05/24/2022: Patient feels much better. Lying down flat. Cleared by currently for discharge. 2-D echo results noted. Intake finding. Discussed. Follow-up kidney function outpatient. Discussion and discharge planning more than 35 minutes Past medical history to include: CHF, diabetes, GERD, hypertension, hyperlipidemia, osteoarthritis, diet- controlled diabetes, anal cancer treated with 25 rounds of chemo and radiation treatment, anemia Social history: Lives alone. No smoking or alcohol. Physical examination: VITAL SIGNS: 98.2, 74, 18, 126 x 6 23, 97% on 2 L GENERAL: Comfortable EYES: Pupils equal. Conjunctiva normal. HEENT: External appearance of nose and ears normal, oral cavity grossly normal. NECK: JVD raised; masses not palpable. HEART: First and second heart sounds are normal; no edema. LUNGS:[ Respiratory rate normal decreased breath sounds. ABDOMEN: Soft, nontender, liver spleen not palpable, no masses palpable. PSYCH: Alert and oriented x3; mood and affect normal. MUSCULOSKELETAL:No Clubbing/cyanosis;muscles-grossly intact. OA INVESTIGATIONS, reviewed in the clinical context: 2-D echocardiogram: EF 40 have an 45%. Moderate to severe MR. Mild TR. 05/23/2022: White count 4.7 hemoglobin 9.9 crit is 180 progression 3.6 BUN 2621.23 proBNP 12,000 Troponin I 0.117 EKG tracing personally reviewed by me-normal sinus rhythm with some ST segment and T-wave changes. Chest x-ray film personally reviewed by me-cardiomegaly, right pleural effusion, venous prominence encephalization Assessment and plan: -Acute on chronic congestive heart failure exacerbation, systolic dysfunction EF 40-45%.: Improved Discharge on Lasix 40 mg twice a day. Low-salt diet. -Moderate severe mitral regurgitation Follow-up with cardiology -Normal coronary arteries by cardiac catheterization with Dr. Maya Moreno on 05/21/2022 -GERD PPI -Essential hypertension Losartan 50 mg a day Lopressor 12.5 mg twice a day -Primary osteoarthritis Naproxen discontinued because of kidney function. -Hyperlipidemia Crestor -Chronic gait dysfunction uses a walker at baseline -Full code Disposition: Home Labs: CBC BMP: 3 days Plan - Discharge Summary New Discharge Prescriptions: Continue Aspirin 325 mg PO DAILY Rosuvastatin Calcium 40 mg PO HS Glucosamine/Chondr Hsu A Sod [Osteo Bi-Flex Caplet] 1 tab PO DAILY Esomeprazole Magnesium [NexIUM 24Hr] 20 mg PO HS Ferrous Sulfate [Iron (65 MG Elemental)] 325 mg PO BID Metoprolol Tartrate [Lopressor] 12.5 mg PO BID Potassium Gluconate [Potassium Gluconate ER] 99 mg PO DAILY Methenamine/Sodium Salicylate [Azo Urinary Tract Defense Tab] 1 tab PO W/LUNCH Losartan Potassium 50 mg PO DAILY Calcium Carbonate/Vitamin D3 [Calcium 600 mg-D3 10 Mcg (400 Iu)] 1 cap PO W/LUNCH Changed Furosemide [Lasix] 40 mg PO DAILY #0 Discontinued Naproxen [Naprosyn] 500 mg PO BID Fexofenadine HCl 180 mg PO W/LUNCH Discharge Medication List Aspirin 325 mg PO DAILY 05/16/22 [History] Calcium Carbonate/Vitamin D3 [Calcium 600 mg-D3 10 Mcg (400 Iu)] 1 cap PO W/LUNCH 05/16/22 [History] Esomeprazole Magnesium [NexIUM 24Hr] 20 mg PO HS 05/16/22 [History] Ferrous Sulfate [Iron (65 MG Elemental)] 325 mg PO BID 05/16/22 [History] Glucosamine/Chondr Hsu A Sod [Osteo Bi-Flex Caplet] 1 tab PO DAILY 05/16/22 [History] Losartan Potassium 50 mg PO DAILY 05/16/22 [History] Methenamine/Sodium Salicylate [Azo Urinary Tract Defense Tab] 1 tab PO W/LUNCH 05/16/22 [History] Metoprolol Tartrate [Lopressor] 12.5 mg PO BID 05/16/22 [History] Potassium Gluconate [Potassium Gluconate ER] 99 mg PO DAILY 05/16/22 [History] Rosuvastatin Calcium 40 mg PO HS 05/16/22 [History] Furosemide [Lasix] 40 mg PO DAILY #0 05/24/22 [Rx] Follow up Appointment(s)/Referral(s): Iban Michael MD [Primary Care Provider] - 1-2 days (Patient's family will make appointment) Yehuda Moreno MD [Family Provider] - 1 Week (Patient currently already has an upcoming appointment)
[2022-05-25] MEDS ORDERED: FUROSEMIDE 10 MG/ML 4 ML VIAL IV SCH (09:00)
== END 2022-05-24 14:20 | disposition home or self-care (01) | DRG 291 ==
LOC: EC 14:14 → 3SCARD 15:51 → OBSVTOIN 05-23 14:22
PROVIDERS: ADMIT Hospitalist; ATTEND Hospitalist
DX: I13.0 Hypertensive heart and chronic kidney disease with heart failure and stage 1 through stage 4 chronic kidney disease, or unspecified chronic kidney disease (principal); I50.23 Acute on chronic systolic (congestive) heart failure; I42.9 Cardiomyopathy, unspecified; E11.22 Type 2 diabetes mellitus with diabetic chronic kidney disease; I25.10 Atherosclerotic heart disease of native coronary artery without angina pectoris; E78.5 Hyperlipidemia, unspecified; K21.9 Gastro-esophageal reflux disease without esophagitis; M19.91 Primary osteoarthritis, unspecified site; R26.9 Unspecified abnormalities of gait and mobility; I49.3 Ventricular premature depolarization; R77.8 Other specified abnormalities of plasma proteins; I08.1 Rheumatic disorders of both mitral and tricuspid valves; N18.9 Chronic kidney disease, unspecified; I25.2 Old myocardial infarction; Z79.82 Long term (current) use of aspirin; Z79.899 Other long term (current) drug therapy; Z88.2 Allergy status to sulfonamides; Z92.3 Personal history of irradiation; Z85.048 Personal history of other malignant neoplasm of rectum, rectosigmoid junction, and anus; Z92.21 Personal history of antineoplastic chemotherapy; Z87.891 Personal history of nicotine dependence; Z28.310 Unvaccinated for COVID-19
CPT/HCPCS: 71046; 80048; 83880; 84484; 85025; 85379; 93306; 93458; 94760; 96374; 96375; 96376; 99285